=== PATIENT | male | born 1960 | race Caucasian/White ===

== ENCOUNTER 2019-04-15 08:09 | Outpatient (RCR) | payer OTHER | END 2019-04-17 13:40 | disposition home or self-care (01) | LOC: WSOH 08:09 | DX: H91.8X1 Other specified hearing loss, right ear (principal); H73.899 Other specified disorders of tympanic membrane, unspecified ear; H69.91 Unspecified Eustachian tube disorder, right ear; W22.8XXA Striking against or struck by other objects, initial encounter; Y92.59 Other trade areas as the place of occurrence of the external cause; Y99.0 Civilian activity done for income or pay; Z79.899 Other long term (current) drug therapy ==